=== PATIENT | female | born 1955 | race Caucasian/White ===

== ENCOUNTER 2019-07-19 20:08 | Emergency (ER) | payer OTHER ==
[2019-07-19] MEDS ORDERED: IBUPROFEN 800 MG TABLET PO ONE (20:39)
--- NOTE | 2019-07-19 20:43 | ER Document Report ---
ED Medical Screen (RME) - General Chief Complaint: Fall Injury Stated Complaint: FALL,KNEE AND SHOULDER PAIN Time Seen by Provider: 07/19/19 20:36 Mode of Arrival: Wheelchair Information source: Patient Notes: 63-year-old female presented to ED for complaint of pain to the left shoulder and knee. She states she fell yesterday but is able to walk but is very painful to the left knee and shoulder. Patient is alert oriented respirations regular and unlabored speaking in full sentences. She states she does have a history of a fractured wrist with surgical repair COPD and high cholesterol. She states she has never smoked and she still has COPD. She states she rarely maybe once or twice a year drinks and does not use any drugs. She does not work she is retired and she lives with her niece and niece's family. I have greeted and performed a rapid initial assessment of this patient. A comprehensive ED assessment and evaluation of the patient, analysis of test results and completion of medical decision making process will be conducted by an additional ED providers. Past Medical History - Social History Frequency of alcohol use: None Drug Abuse: None Physical Exam - Vital signs Vitals: Temp Pulse Resp BP Pulse Ox 97.9 F 71 26 H 138/69 H 95 07/19/19 20:17 07/19/19 20:17 07/19/19 20:17 07/19/19 20:17 07/19/19 20:17 Course - Vital Signs Vital signs: Temp Pulse Resp BP Pulse Ox 97.9 F 71 26 H 138/69 H 95 07/19/19 20:17 07/19/19 20:17 07/19/19 20:17 07/19/19 20:17 07/19/19 20:17
--- NOTE | 2019-07-19 21:28 | RADIOLOGY REPORT (SQ) ---
XR SHOULDER 2 OR MORE VIEWS CLINICAL STATEMENT: fall pain in knee and shoulder COMPARISON: None FINDINGS: Bony alignment is anatomic. There is no fracture or dislocation. The soft tissues are unremarkable. Mild acromioclavicular and mild glenohumeral joint degenerative changes. IMPRESSION: No fracture.
--- NOTE | 2019-07-19 21:29 | RADIOLOGY REPORT (SQ) ---
EXAM DESCRIPTION: CLINICAL HISTORY: 63 years Female, fall pain in knee and shoulder COMPARISON: None. FINDINGS: Mild degenerative changes in the patellofemoral and medial tibiofemoral joint. Suspected periarticular osteoporosis. Mild suprapatellar joint effusion. No obvious acute fracture dislocation. IMPRESSION: Degenerative changes. Periarticular osteopenia. Small joint effusion may be related to acute trauma or chronic internal derangement. No obvious acute fracture dislocation.
--- NOTE | 2019-07-19 23:32 | ER Document Report ---
HPI - HPI Time Seen by Provider: 07/19/19 20:36 Pain Level: 5 Context: Patient is a 63-year-old female who presents to the emergency department with a chief complaint of left shoulder and left arm pain. Patient reports yesterday around 5 PM she was running to the house chasing a toddler when she fell onto her left side. Patient reports she did trip over her feet in the kitchen on ceramic yadiel. Patient states she did not hit her head or have a loss of consciousness. Patient reports today she has felt significantly worse and more stiff. Patient reports she is having a left upper arm and left shoulder pain. Patient reports this pain is worse when she attempts to raise her arm above her shoulder. Patient states she has been walking on her left leg but is having left knee pain. Patient has not been taking anything for this discomfort. Patient has been elevating her left leg and icing it. Patient denies use of blood thinners. - REPRODUCTIVE Reproductive: DENIES: : - MUSCULOSKELETAL Musculoskeletal: REPORTS: Extremity pain Past Medical History - General Information source: Patient - Social History Smoking Status: Never Smoker Frequency of alcohol use: None Drug Abuse: None Lives with: Family Family History: None Patient has suicidal ideation: No Patient has homicidal ideation: No Vertical Provider Document - CONSTITUTIONAL Agree With Documented VS: Yes Exam Limitations: No Limitations General Appearance: No Apparent Distress - HEENT HEENT: Atraumatic, Normal ENT Exam, Normocephalic, PERRLA - NECK Neck: Normal Inspection, Supple - RESPIRATORY Respiratory: Breath Sounds Normal, No Respiratory Distress - CARDIOVASCULAR Cardiovascular: Regular Rate, Regular Rhythm - GI/ABDOMEN Gastrointestinal: Abdomen Soft, Abdomen Non-Tender - MUSCULOSKELETAL/EXTREMETIES Notes: There is no tenderness with palpation to the anterior, posterior or lateral aspect of the shoulder. Patient does have mild tenderness to the left upper arm. There is no significant edema, erythema, ecchymosis noted. Patient has a strong left +2 brachial and radial pulse. 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 Patient denies numbness or tingling to the left arm. Patient is able to lift her arm above her shoulder although she reports that this causes pain. Patient has tenderness to the patella with palpation. There is no ecchymosis, erythema or significant edema. Patient is able to ambulate on the left leg. - NEURO Level of Consciousness: Awake, Alert, Appropriate - DERM Integumentary: Warm, Dry Course - Re-evaluation Re-evalutation: 07/20/19 02:27 Patient's x-rays were negative. I did inform her that she had a small effusion of the left knee which could be due to trauma or chronic. I did inform the patient that she is going to feel more sore and stiff over the next few days. Patient encouraged to ice, elevate and use anti-inflammatories as needed for pain. I did inform the patient that over the next few weeks if she does not start to feel better she needs to follow-up with orthopedics as she could have injured herself with a tendon or possible ligament. Patient verbalizes understanding. Current patient is nontoxic-appearing in no acute distress. Patient denies any other injury. - Vital Signs Vital signs: Temp Pulse Resp BP Pulse Ox 97.9 F 71 26 H 138/69 H 95 07/19/19 20:17 07/19/19 20:17 07/19/19 20:17 07/19/19 20:17 07/19/19 20:17 - Diagnostic Test Radiology reviewed: Reports reviewed Radiology results interpreted by me: 07/20/19 02:26 Knee X-Ray 07/19/19 20:39 IMPRESSION: Degenerative changes. Periarticular osteopenia. Small joint effusion may be related to acute trauma or chronic internal derangement. No obvious acute fracture dislocation. Shoulder X-Ray 07/19/19 20:39 IMPRESSION: No fracture. Discharge - Discharge Clinical Impression: Left arm pain Fall Qualifiers: Encounter type: initial encounter Qualified Code(s): W19.XXXA - Unspecified fall, initial encounter Left knee pain Qualifiers: Chronicity: acute Qualified Code(s): M25.562 - Pain in left knee Condition: Stable Disposition: HOME, SELF-CARE Additional Instructions: Today you are seen the emergency department after a fall. We did obtain an x- ray of your shoulder and knee. There is no acute bony abnormality such as a fracture or dislocation. Your symptoms are more likely due to a muscle strain. If you continue to have issues over the next few weeks I would follow-up with orthopedics as you could have a more serious underlying issue such as a torn rotator cuff or something that was torn in the knee. You do have a small effusion of the left knee. This could be due to trauma. Please keep your leg elevated, use ice and anti-inflammatory such as ibuprofen. Since you do have a history of acid reflux I would make sure to eat when taking medication. Please return emergency department if you have significant swelling or severe pain. Please follow-up with your primary care physician. Referrals: JOVAN TERRY MD [Primary Care Provider] - Follow up as needed DOMINIC MADRID MD [ACTIVE PROVISIONAL STAFF] - Follow up as needed KEVIN HERNANDEZ MD [ACTIVE STAFF] - Follow up as needed SHARYN ASHLEY DO [ACTIVE STAFF] - Follow up as needed
[2019-07-19 23:41] VITALS: BP 132/75
== END 2019-07-19 23:40 | disposition home or self-care (01) ==
LOC: ER 20:08
DX: M79.602 Pain in left arm (principal); M25.562 Pain in left knee; M25.512 Pain in left shoulder; W01.0XXA Fall on same level from slipping, tripping and stumbling without subsequent striking against object, initial encounter; Y93.89 Activity, other specified; Y92.000 Kitchen of unspecified non-institutional (private) residence as the place of occurrence of the external cause; M85.869 Other specified disorders of bone density and structure, unspecified lower leg; M25.462 Effusion, left knee
CPT/HCPCS: 99283; 73564; 73030; A9270